=== PATIENT | male | born 2000 ===

== ENCOUNTER → 2023-03-24 15:40 | Outpatient (CLI) | payer OTHER, SELFPAY ==
--- NOTE | ~2023-03-24 | MR_ITS ---
EXAMINATION: MR lumbar spine wo con DATE: 03/24/2023 16:21 INDICATION: Chronic bilateral low back pain without sciatica . TECHNIQUE: Magnetic resonance imaging (MRI) of the lumbar spine was performed without intravenous con trast. Sequences included sagittal T2-weighted FSE, sagittal T2-weighted FS FSE, sagittal T1-weighted FSE, and axial T2-weighted FSE. COMPARISON: None FINDINGS: The last fully formed and hydrated disc is designated L5-S1. The marrow signal is benign an d homogenous. Conus terminates at L1-2. The discs are well hydrated. Mild dilation of the right renal pelvis. Mild loss of disc height at L4-5. The following disc levels are specifically discussed: T11-T12: The disc does not extend beyond the endplate margin. There is no facet joint osteoarthritis. There is no neural foraminal stenosis. There is no central canal stenosis. T12-L1: The disc does not extend beyond the endplate margin. There is mild facet joint osteoarthritis . There is no neural foraminal stenosis. There is no central canal stenosis. L1-L2: Mild diffuse bulge. There is mild facet joint osteoarthritis. There is no neural foraminal etta nosis. There is no central canal stenosis. L2-L3: Mild diffuse bulge. There is mild bilateral facet joint osteoarthritis. There is mild left rosamaria ral foraminal stenosis. There is no central canal stenosis. L3-L4: Mild diffuse bulge.. There is mild bilateral facet joint osteoarthritis slightly greater on th e right. There is mild bilateral neural foraminal stenosis. There is no central canal stenosis. L4-L5: Mild diffuse bulge with a tiny posterior disc rent There is mild bilateral facet joint osteoar thritis. There is mild bilateral neural foraminal stenosis. There is no central canal stenosis. L5-S1: Mild diffuse bulge. There is mild bilateral facet joint osteoarthritis. There is moderate bila teral neural foraminal stenosis. There is no central canal stenosis. IMPRESSION: Moderate bilateral neural foraminal narrowing at L5-S1. Mild neural foraminal narrowing noted at mult iple additional levels, as detailed above. Mild multilevel degenerative disc disease and facet arthropathy. Mild right pelviectasis. Consider renal sonography. Reviewed, dictated and finalized at location K. DRY TECH IMPRESSION: Moderate bilateral neural foraminal narrowing at L5-S1. Mild neural foraminal n arrowing noted at multiple additional levels, as detailed above. Mild multilevel degenerative disc disease and facet arthropathy. Mild right pelviectasis. Consider renal sonography.
== END ==
PROVIDERS: PCP Family Medicine; Visit Provider Family Medicine
DX: M54.50 Low back pain, unspecified (principal); G89.29 Other chronic pain
CPT/HCPCS: 72148